=== PATIENT | female | born 1990 | race African-American/Black ===

== ENCOUNTER 2020-11-10 12:21 | Emergency (ER) | payer OTHER, BC ==
[~2020-11-10] VITALS: Ht 162.6 cm; Wt 81.7 kg
[2020-11-10] MEDS ORDERED: NAPROSYN500 MG PO (14:46)
[2020-11-10] MEDS ORDERED: FLEXERIL PO (14:46)
[2020-11-10] MEDS ORDERED: TYLENOL325 M1 PO (14:46)
[2020-11-10 15:20] VITALS: BP 140/92
== END 2020-11-10 15:23 | disposition home or self-care (01) ==
LOC: ER 12:21
DX: S20.211A Contusion of right front wall of thorax, initial encounter (principal); S50.12XA Contusion of left forearm, initial encounter; S70.02XA Contusion of left hip, initial encounter; S40.012A Contusion of left shoulder, initial encounter; V43.52XA Car driver injured in collision with other type car in traffic accident, initial encounter; Y93.I9 Activity, other involving external motion; Y92.89 Other specified places as the place of occurrence of the external cause; Y99.8 Other external cause status